=== PATIENT | male | born 1970 | race Caucasian/White ===

== ENCOUNTER 2017-02-19 04:35 | Emergency (ER) | payer OTHER ==
[~2017-02-19 04:35] MED LIST: ATENOLOL25 MG PO; IBUPROFEN600 MG PO; PERCOCET1 TA1 PO; VISTARIL25 MG PO
--- NOTE | 2017-02-19 10:40 | ED ORDER SUMMARY ---
..... Patient: MARTIN ARRINGTON OrderSheet [facility] VisitID: [id number] [place] [address] 47y, M Registration Date/Time: 02/19/2017 ORDER SHEET Weight: 77.1 kg (stated) Allergies: No Known Drug Allergy GENERAL ORDERS: CBC w Diff Urgent (05:03 02/19/2017 JQuivey R.N. verbal order read back to Milvia RANKIN) (Ack 5:15 CHagrafael ER Enrober Tender) (5:18 JQuivey R.N.) CMP Urgent (05:03 02/19/2017 JQuivey R.N. verbal order read back to Milvia RANKIN) (Ack 5:15 CHagrafael ER Enrober Tender) (5:18 JQuivey R.N.) UA-Culture if indicated Urgent (05:03 02/19/2017 JQuivey R.N. verbal order read back to Milvia RANKIN) (Ack 5:15 Carmelo ER Enrober Tender) (5:18 JQuivey R.N.) Amylase Urgent (05:03 02/19/2017 JQuivey R.N. verbal order read back to Milvia RANKIN) (Ack 5:15 Carmelo ER Enrober Tender) (5:18 JQuivey R.N.) Lipase Urgent (05:03 02/19/2017 JQuivey R.N. verbal order read back to Milvia RANKIN) (Ack 5:15 Carmelo ER Enrober Tender) (5:18 JQuivey R.N.) MEDICATION ORDERS: IV FLUIDS: IV Saline Lock (05:03 02/19/2017 JQuivey R.N. verbal order read back to Milvia RANKIN) (5:18 JQuivey R.N.) Zofran IV 4 mg (NOW) (06:58 02/19/2017 JQuivey R.N. verbal order read back to Milvia RANKIN) (Ack 6:59 JQuivey R.N.) (7:06 JQuivey R.N.) Dilaudid IV 0.5 mg (NOW) (06:59 02/19/2017 JQuivey R.N. verbal order read back to Milvia RANKIN) (Ack 6:59 Jonh R.NTrang) (7:06 Jonh Curry) ORDER SHEET NOTES: [Electronically signed by Adina Rashid R.N. (11:03 02/19/2017)] [Electronically signed by Maynor Prado MD (11:30 03/10/2017)] [Electronically locked/signed by Adina Rashid R.N. (11:03 02/19/2017)]
--- NOTE | 2017-02-19 10:40 | ED ORDER SUMMARY ---
..... Patient: MARTIN ARRINGTON OrderSheet [facility] VisitID: [id number] [place] [address] 47y, M Registration Date/Time: 02/19/2017 ORDER SHEET Weight: 77.1 kg (stated) Allergies: No Known Drug Allergy GENERAL ORDERS: CBC w Diff Urgent (05:03 02/19/2017 JQuivey R.N. verbal order read back to Milvia RANKIN) (Ack 5:15 CHagrafael ER Heat Treat Inspector) (5:18 JQuivey R.N.) CMP Urgent (05:03 02/19/2017 JQuivey R.N. verbal order read back to Milvia RANKIN) (Ack 5:15 CHagrafael ER Heat Treat Inspector) (5:18 JQuivey R.N.) UA-Culture if indicated Urgent (05:03 02/19/2017 JQuivey R.N. verbal order read back to Milvia RANKIN) (Ack 5:15 Carmelo ER Heat Treat Inspector) (5:18 JQuivey R.N.) Amylase Urgent (05:03 02/19/2017 JQuivey R.N. verbal order read back to Milvia RANKIN) (Ack 5:15 Carmelo ER Heat Treat Inspector) (5:18 JQuivey R.N.) Lipase Urgent (05:03 02/19/2017 JQuivey R.N. verbal order read back to Milvia RANKIN) (Ack 5:15 Carmelo ER Heat Treat Inspector) (5:18 JQuivey R.N.) MEDICATION ORDERS: IV FLUIDS: IV Saline Lock (05:03 02/19/2017 JQuivey R.N. verbal order read back to Milvia RANKIN) (5:18 JQuivey R.N.) Zofran IV 4 mg (NOW) (06:58 02/19/2017 JQuivey R.N. verbal order read back to Milvia RANKIN) (Ack 6:59 JQuivey R.N.) (7:06 JQuivey R.N.) Dilaudid IV 0.5 mg (NOW) (06:59 02/19/2017 JQuivey R.N. verbal order read back to Milvia RANKIN) (Ack 6:59 Jonh R.NTrang) (7:06 Jonh Curry) ORDER SHEET NOTES: [Electronically signed by Adina Rashid R.N. (11:03 02/19/2017)] [Electronically signed by Maynor Prado MD (11:30 03/10/2017)] [Electronically locked/signed by Adina Rashid R.N. (11:03 02/19/2017)]
--- NOTE | 2017-02-19 10:40 | ED NURSING NOTES ---
Clinical Report - Nurses [facility] [address] [place] [address] 02/19/2017 4:34 Patient: MARTIN ARRINGTON TRIAGE Triage time 04:44. Acuity: LEVEL 3. Chief Complaint: HEADACHE and (Blood clots from nose, neck pain). 04:53. Alert. SEPSIS SCREEN: Sepsis Screen. Negative (no infection suspected/documented). --04:53 Willy Lorenzo R.N. 04:44 02/19/17. BP: 124/87. HR: 81. RR: 15. O2 saturation: 97%. Temp: 98.4 F (oral). Pain level now: 05/06. --04:53 Willy Lorenzo R.N. Weight: 77.1 kg stated. Height/Length: 66 inches Per Patient. BMI: 27.4. --04:50 Willy Lorenzo R.N. Medications None. --04:47 Willy Lorenzo R.N. Medication/allergy information source: the patient and patient's family. --04:53 Willy Lorenzo R.N. Allergies No Known Drug Allergy. --04:47 Willy Lorenzo R.N. History Arrived by private vehicle. Historian: patient. Accompanied by spouse. Primary physician (Royer). This started last night. ( Patients reports pt gets nose bleeds, and since November he has been getting BLUNT's at the end of sex last night got a bad BLUNT and this AM had large blood clots from his nose and has a sore neck). 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 PAST MEDICAL HX: Immunizations: up-to-date. SOCIAL HX: Smoker- current status unknown (Chews). Never smoker. Alcohol use; consumes three beers a day. No drug use. No recent travel. No infectious disease exposure. ABUSE ASSESSMENT: No report of abuse. FALL RISK ASSESSMENT: Fall risk assessment completed. No fall risk identified. NUTRITIONAL RISK ASSESSMENT: The nutritional risk assessment revealed no deficiencies. FUNCTIONAL ASSESSMENT: Functional assessment: no impairments noted. LEARNING NEEDS ASSESSMENT: The learning needs assessment revealed no barriers. SKIN INTEGRITY ASSESSMENT: Skin integrity risk assessment completed. No skin integrity risk identified. --04:53 Willy Lorenzo R.N. PROBLEMS: Spinal menigitis. Deaf. --04:49 Willy Lorenzo R.N. ADDITIONAL SURGERIES: Abdominal surgery. Knee Surgery. Left wrist . Shoulder Surgery. --04:49 Willy Lorenzo R.N. Interventions ID band on patient. To treatment room. --04:53 Willy Lorenzo R.N. PHYSICAL ASSESSMENT 04:53. Ambulatory to room. GENERAL / NEURO / PSYCH: Alert. Oriented X 4. HEENT: No facial asymmetry noted. RESPIRATORY: Respirations not labored. SKIN: Skin is warm and dry. --04:53 Willy Lorenzo R.N. NURSING PROGRESS NOTES 04:54. Two patient identifiers checked. Call light placed in reach. Bed placed in lowest position. Brakes of bed on. Patient ready for evaluation- chart flagged. --04:54 Willy Lorenzo R.N. 05:13 02/19/2017 Site #1 started via IV in the right antecubital space with an 20g angiocath, with aseptic technique and good blood return; one attempt. Blood drawn: rainbow set. Labeled in the presence of the patient and sent to the lab. Saline lock flushed with 10 mL saline. --05:18 Willy Lorenzo R.N. 05:10. Patient ID band checked for patient name and birthdate: patient confirmed. Clean catch urine collected with return of yellow-colored carlos manuel-colored clear urine; sample sent to lab for urinalysis. Specimen labeled in the presence of the patient. --05:19 Willy Lorenzo R.N. 07:01 02/19/2017 Zofran (Ondansetron HCl) IVP 4 mg given over 2 minute(s) via site #1. Allergies verified and confirmed 5 rights. IV patency established. IV site checked: no pain, redness, or swelling. IV flushed thoroughly pre- and post-medication administration. --07:06 Willy Lorenzo R.N. 07:03 02/19/2017 Dilaudid (HYDROmorphone HCl PF) IVP 0.5 mg given over 2 minute(s) via site #1. Allergies verified, confirmed 5 rights and sedative warning given to the patient and patient's family. IV patency established. IV site checked: no pain, redness, or swelling. IV flushed thoroughly pre- and post-medication administration. --07:06 Willy Lorenzo R.N. The patient is calm and resting quietly. GENERAL / NEURO / PSYCH: Alert. Oriented X 4. RESPIRATORY: No respiratory distress. SKIN: Skin is warm and dry. Skin color within normal limits. --07:07 Willy Lorenzo R.N. 07:06 02/19/17. BP: 114/75. HR: 75. RR: 15. O2 saturation: 92%. --07:07 Willy Lorenzo R.N. Care transferred and report given (Troy Sparks EDRN). --07:21 Willy Lorenzo R.N. 09:00 02/19/17. ( Patient resting soundly states hasn't seen her sleep like this in a long time and that he is much better. states they have a f/u appointment this evening.). --10:48 Yamilet Ricketts R.N. 10:15 02/19/17. ( Report given to Adrianne MARQUEZ). --10:48 Yamilet Ricketts R.N. 10:15 02/19/17. Care transferred and report received. --10:15 Adina Rashid R.N. 10:15 02/19/17. BP: 108/75. HR: 74. RR: 16. O2 saturation: 93% on room air. Temp: deferred. Pain level now: 02/03. Additional comments: pt resting quietly, at bedside. Pt in no acute distress, dozes off and on . --10:19 Adina Rashid R.N. 09:30 02/19/17. BP: 115/77. HR: 86. RR: 20. O2 saturation: 94%. 09:00 02/19/17. BP: 102/75. HR: 86. RR: 18. O2 saturation: 93%. 08:30 02/19/17. BP: 113/75. HR: 86. RR: 18. O2 saturation: 94%. 08:00 02/19/17. BP: 113/79. HR: 87. RR: 18. O2 saturation: 93%. 07:30 02/19/17. BP: 114/79. HR: 86. RR: 18. O2 saturation: 93%. --10:46 Yamilet Ricketts R.N. 10:30 02/19/2017 Site #1 removed upon discharge. Bandaid applied. --11:02 Adina Rashid R.N. 10:30 02/19/2017 IV Saline Lock Drip IV Discontinued: upon discharge. Total amount infused: 0 mL. IV patency established. IV site checked: no pain, redness, or swelling. IV flushed thoroughly. --11:02 Adina Rashid R.N. DISPOSITION / DISCHARGE 10:40. Condition at departure: improved and stable. Learning barriers present. Teaching performed with the patient and family via family member interpreting. Learning barriers note: pt is deaf, but signed discharge instructions. Discharge instructions provided and reviewed with the patient. Reviewed medication(s) (vicodin). Patient verbalized understanding. Written instructions provided in Romansh. The patient was discharged home and accompanied by spouse. He left the Emergency Department ambulatory and via private vehicle. Spouse driving. --11:01 Adina Rashid R.N. 10:52 02/19/17. BP: 110/72. HR: 78. RR: 18. O2 saturation: 96%. Temp: deferred. Pain level now: 02/03. --11:01 Adina Rashid R.N. Locked/Released at 02/19/2017 11:03 by Adina Rashid R.N.
--- NOTE | 2017-02-19 10:40 | ED CLINICAL REPORT ---
Clinical Report - Physicians/Mid Levels [facility] [address] [place] [address] 02/19/2017 4:34 Patient: MARTIN ARRINGTON Time Seen: 04:55. Arrived- By private vehicle. Historian- patient and spouse. HISTORY OF PRESENT ILLNESS Chief Complaint: HEADACHE. This started last night and is now gone. It was abrupt in onset. Onset during intercourse. It is described as pressure, throbbing, sharp and diffuse. Has had neck pain. (his reports that he gets nose bleeds, and since November he has been getting BLUNT's at the end of sex. Last night got a bad BLUNT and this AM had large blood clots from his nose and has a sore neck). Similar symptoms previously: Several times. REVIEW OF SYSTEMS No chills, fever, sweats, calf pain or chest pain. No cough, difficulty breathing, pedal edema or palpitations. 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 He has had mild epistaxis (today - gone now). The bleeding seems to be coming from the right nare. All systems otherwise negative, except as recorded above. PAST HISTORY No history of head injury. Additional Surgeries: Abdominal surgery. Knee Surgery. Left wrist . Shoulder Surgery. Medications: None. Allergies: No Known Drug Allergy. SOCIAL HISTORY History of drug use He has a distant history of methamphetamine abuse. He lives with spouse. Has good social support. FAMILY HISTORY Denies family medical history. ADDITIONAL NOTES The nursing notes have been reviewed. PHYSICAL EXAM Vital Signs: 02/19/2017 04:44 BP: 124/87. HR: 81. RR: 15. O2 saturation: 97%. Temp: 98.4 F. Pain level now: 9/10. Have been reviewed. Appearance: Alert. No acute distress. Eyes: Pupils equal, round and reactive to light. Eyes normal inspection. ENT: Pharynx normal. Neck: Normal inspection. Neck supple. No meningeal signs or carotid bruit. CVS: Normal heart rate and rhythm. Heart sounds normal. Respiratory: No respiratory distress. Breath sounds normal. Abdomen: Soft and nontender. No organomegaly. Back: Normal inspection. No CVA tenderness. Skin: Skin warm and dry. Normal skin color. No rash. Normal skin turgor. Extremities: Extremities exhibit normal ROM. No calf tenderness. No lower extremity edema. Neuro: Alert. Mood/affect normal. No cerebellar findings. No motor deficit. PROGRESS AND PROCEDURES Course of Care: I had an extended discussion with the patient and his about the potential benefits and risks of CT imaging of the head. Given the fact that he has a cochlear implant that has been in place for years but is not in use and there are concerns about it, they would like to follow up at [facility]. Therefore, he has decided that he would like to wait until he goes there for any imaging studies. Patient/family counseled. Old medical records ordered. Disposition: Discharged. Condition: stable. CLINICAL IMPRESSION Episodic headache. INSTRUCTIONS No driving or operating machinery while taking medication. Sedative medication was given during your visit. Warnings: Further evaluation is necessary. GENERAL WARNINGS: Return or contact your physician immediately if your condition worsens or changes unexpectedly, if not improving as expected, or if other problems arise. Prescription Medications: Hydrocodone/APAP 5mg/325mg: take 1 to 2 orally every 6 hours as needed for pain. Dispense fifteen (15). No refills. Follow-up: Follow up with your doctor today as scheduled. Follow up with a neurologist- as recommended by your primary care physician- also follow-up with the department at [facility] where you're cochlear implant was placed as discussed. Understanding of the discharge instructions verbalized by patient and family. (Electronically signed by Maynor Prado MD 03/10/2017 11:30)
--- NOTE | 2017-03-10 11:30 | ED MED RECONCILIATION SUMMARY ---
Patient: MARTIN ARRINGTON Medication Reconciliation Report [facility] VisitID: [id number] [address] [place] [address] 47y, M Registration Date/Time: 02/19/2017 Weight: 77.1 kg Height/Length: 66 in. BMI: 27.4 ALLERGIES: No Known Drug Allergy The patient's Home Medications are listed below: NONE. The source(s) of the original Home Medication information: patient's family member patient The following Medications were given to the patient in the Emergency Department: Zofran [IVP] IVP 4 mg, administered: 02/19/2017 7:01:00 AM Dilaudid [IVP] IVP 0.5 mg, administered: 02/19/2017 7:03:00 AM The following Medications were prescribed to the patient: Hydrocodone/APAP 5mg/325mg: take 1 to 2 orally every 6 hours as needed for pain. Dispense fifteen (15). No refills. -- Maynor Prado MD
--- NOTE | 2017-03-10 11:30 | ED MAR SUMMARY ---
..... Medication Administration Record [facility] [address] [place] [address] Patient: MARTIN ARRINGTON Visit ID: [id number] 47y, M Weight: 77.1 kg Height/Length: 66 in BMI: 27.4 ALLERGIES: No Known Drug Allergy Given 07:01 02/19/2017 Willy Lorenzo RTrangN. Medication Administered: ZOFRAN [IVP] (ONDANSETRON HCL), Dose: 4 mg IVP over 2 minute(s), Site: #1 right AC. Medication Ordered: Zofran IV 4 mg (NOW). Given 07:03 02/19/2017 Willy Lorenzo RTrangN. Medication Administered: DILAUDID [IVP] (HYDROMORPHONE HCL PF), Dose: 0.5 mg IVP over 2 minute(s), Site: #1 right AC. Medication Ordered: Dilaudid IV 0.5 mg (NOW).
--- NOTE | 2017-03-10 11:30 | ED DISCHARGE INSTRUCTIONS ---
Patient: MARTIN ARRINGTON General Instructions [facility] VisitID: [id number] [place] [address] 47y, M Registration Date/Time: 02/19/2017 Episodic headache. INSTRUCTIONS No driving or operating machinery while taking medication. Sedative medication was given during your visit. Warnings: Further evaluation is necessary. GENERAL WARNINGS: Return or contact your physician immediately if your condition worsens or changes unexpectedly, if not improving as expected, or if other problems arise. Prescription Medications: Hydrocodone/APAP 5mg/325mg: take 1 to 2 orally every 6 hours as needed for pain. Dispense fifteen (15). No refills. Follow-up: Follow up with your doctor today as scheduled. Follow up with a neurologist- as recommended by your primary care physician- also follow-up with the department at [facility] where you're cochlear implant was placed as discussed. Understanding of the discharge instructions verbalized by patient and family. ADDITIONAL INFORMATION Headache [Unspecified] The cause of your headache today is not clear, but it does not appear to be the sign of any serious illness. Under stress, some people tense the muscles of their shoulder, neck and scalp without knowing it. If this condition lasts long enough, a TENSION HEADACHE can occur. A MIGRAINE HEADACHE is caused by changes in blood flow to the brain. A migraine attack may be triggered by emotional stress, hormone changes during the menstrual cycle, oral contraceptives, alcohol use, certain foods containing tyramine, eye strain, weather changes, missing meals, lack of sleep or oversleeping. Other causes of headache include a viral illness with high fever, head injury with concussion, sinus, ear or throat infection, dental pain and TMJ (jaw joint) pain. More serious but less common causes of headache include stroke, brain hemorrhage, brain tumor, meningitis and encephalitis. Home Care: If you were given pain medicine for this headache, do not drive yourself home. Arrange for a ride, instead. When you get home, try to sleep. You should feel much better when you wake up. Apply heat to the back of your neck to relieve neck muscle spasm. Migraine headaches may respond best to an ice pack on the forehead or at the base of the skull. If you are having nausea or vomiting, follow a light diet until your headache is relieved. If you have a migraine type headache, use sunglasses when in the daylight or around bright indoor lighting until symptoms improve. Bright glaring light can worsen this kind of headache. Follow Up with your doctor if the headache is not better within the next 24 hours. If you have frequent headaches you should discuss a treatment plan with your primary care doctor. By being aware of the earliest signs of headache, and starting treatment right away, you may be able to stop the pain yourself. Get Prompt Medical Attention if any of the following occur: Worsening of your head pain or no improvement within 24 hours Repeated vomiting (unable to keep liquids down) Fever of 100.4F (38C) or higher, or as directed by your healthcare provider Stiff neck Extreme drowsiness, confusion or fainting Dizziness, vertigo (dizziness with spinning sensation) Weakness of an arm or leg or one side of the face Difficulty with speech or vision Hydrocodone Bitartrate, Acetaminophen Oral tablet What is this medicine? ACETAMINOPHEN; HYDROCODONE (a set a BRYAN john fen; ganesh droe KOE done) is a pain reliever. It is used to treat mild to moderate pain. How should I use this medicine? Take this medicine by mouth. Swallow it with a full glass of water. Follow the directions on the prescription label. If the medicine upsets your stomach, take the medicine with food or milk. Do not take more than you are told to take. Talk to your cable rigger regarding the use of this medicine in children. This medicine is not approved for use in children. What side effects may I notice from receiving this medicine? Side effects that you should report to your doctor or health medicare compliance auditor as soon as possible: allergic reactions like skin rash, itching or hives, swelling of the face, lips, or tongue breathing problems confusion feeling faint or lightheaded, falls stomach pain yellowing of the eyes or skin Side effects that usually do not require medical attention (report to your doctor or health medicare compliance auditor if they continue or are bothersome): nausea, vomiting stomach upset What may interact with this medicine? alcohol antihistamines isoniazid medicines for depression, anxiety, or psychotic disturbances medicines for sleep muscle relaxants naltrexone narcotic medicines (opiates) for pain phenobarbital ritonavir tramadol What if I miss a dose? If you miss a dose, take it as soon as you can. If it is almost time for your next dose, take only that dose. Do not take double or extra doses. Where should I keep my medicine? Keep out of the reach of children. This medicine can be abused. Keep your medicine in a safe place to protect it from theft. Do not share this medicine with anyone. Selling or giving away this medicine is dangerous and against the law. Store at room temperature between 15 and 30 degrees C (59 and 86 degrees F). Protect from light. Keep container tightly closed. Throw away any unused medicine after the expiration date. Discard unused medicine and used packaging carefully. Pets and children can be harmed if they find used or lost packages. What should I tell my health care provider before I take this medicine? They need to know if you have any of these conditions: brain tumor Crohn's disease, inflammatory bowel disease, or ulcerative colitis drink more than 3 alcohol-containing drinks per day drug abuse or addiction head injury heart or circulation problems kidney disease or problems going to the bathroom liver disease lung disease, asthma, or breathing problems an unusual or allergic reaction to acetaminophen, hydrocodone, other opioid analgesics, other medicines, foods, dyes, or preservatives or trying to get breast-feeding What should I watch for while using this medicine? Tell your doctor or health medicare compliance auditor if your pain does not go away, if it gets worse, or if you have new or a different type of pain. You may develop tolerance to the medicine. Tolerance means that you will need a higher dose of the medicine for pain relief. Tolerance is normal and is expected if you take the medicine for a long time. Do not suddenly stop taking your medicine because you may develop a severe reaction. Your body becomes used to the medicine. This does NOT mean you are addicted. Addiction is a behavior related to getting and using a drug for a non-medical reason. If you have pain, you have a medical reason to take pain medicine. Your doctor will tell you how much medicine to take. If your doctor wants you to stop the medicine, the dose will be slowly lowered over time to avoid any side effects. You may get drowsy or dizzy when you first start taking the medicine or change doses. Do not drive, use machinery, or do anything that may be dangerous until you know how the medicine affects you. Stand or sit up slowly. There are different types of narcotic medicines (opiates) for pain. If you take more than one type at the same time, you may have more side effects. Give your health care provider a list of all medicines you use. Your doctor will tell you how much medicine to take. Do not take more medicine than directed. Call emergency for help if you have problems breathing. The medicine will cause constipation. Try to have a bowel movement at least every 2 to 3 days. If you do not have a bowel movement for 3 days, call your doctor or health medicare compliance auditor. Too much acetaminophen can be very dangerous. Do not take Tylenol (acetaminophen) or medicines that contain acetaminophen with this medicine. Many non-prescription medicines contain acetaminophen. Always read the labels carefully. You have been given the following additional information: Headache, Unspecified Hydrocodone Bitartrate, Acetaminophen Oral tablet No driving or operating machinery while taking medication. Sedative medication was given during your visit. (Electronically signed by Maynor Prado MD 03/10/2017 11:30)
--- NOTE | 2017-03-10 11:30 | ED MAR SUMMARY ---
..... Medication Administration Record [facility] [address] [place] [address] Patient: MARTIN ARRINGTON Visit ID: [id number] 47y, M Weight: 77.1 kg Height/Length: 66 in BMI: 27.4 ALLERGIES: No Known Drug Allergy Given 07:01 02/19/2017 Willy Lorenzo RTrangN. Medication Administered: ZOFRAN [IVP] (ONDANSETRON HCL), Dose: 4 mg IVP over 2 minute(s), Site: #1 right AC. Medication Ordered: Zofran IV 4 mg (NOW). Given 07:03 02/19/2017 Willy Lorenzo RTrangN. Medication Administered: DILAUDID [IVP] (HYDROMORPHONE HCL PF), Dose: 0.5 mg IVP over 2 minute(s), Site: #1 right AC. Medication Ordered: Dilaudid IV 0.5 mg (NOW).
--- NOTE | 2017-03-10 11:30 | ED MED RECONCILIATION SUMMARY ---
Patient: MARTIN ARRINGTON Medication Reconciliation Report [facility] VisitID: [id number] [address] [place] [address] 47y, M Registration Date/Time: 02/19/2017 Weight: 77.1 kg Height/Length: 66 in. BMI: 27.4 ALLERGIES: No Known Drug Allergy The patient's Home Medications are listed below: NONE. The source(s) of the original Home Medication information: patient's family member patient The following Medications were given to the patient in the Emergency Department: Zofran [IVP] IVP 4 mg, administered: 02/19/2017 7:01:00 AM Dilaudid [IVP] IVP 0.5 mg, administered: 02/19/2017 7:03:00 AM The following Medications were prescribed to the patient: Hydrocodone/APAP 5mg/325mg: take 1 to 2 orally every 6 hours as needed for pain. Dispense fifteen (15). No refills. -- Maynor Prado MD
--- NOTE | 2017-03-10 11:30 | ED DISCHARGE INSTRUCTIONS ---
Patient: MARTIN ARRINGTON General Instructions [facility] VisitID: [id number] [place] [address] 47y, M Registration Date/Time: 02/19/2017 Episodic headache. INSTRUCTIONS No driving or operating machinery while taking medication. Sedative medication was given during your visit. Warnings: Further evaluation is necessary. GENERAL WARNINGS: Return or contact your physician immediately if your condition worsens or changes unexpectedly, if not improving as expected, or if other problems arise. Prescription Medications: Hydrocodone/APAP 5mg/325mg: take 1 to 2 orally every 6 hours as needed for pain. Dispense fifteen (15). No refills. Follow-up: Follow up with your doctor today as scheduled. Follow up with a neurologist- as recommended by your primary care physician- also follow-up with the department at [facility] where you're cochlear implant was placed as discussed. Understanding of the discharge instructions verbalized by patient and family. ADDITIONAL INFORMATION Headache [Unspecified] The cause of your headache today is not clear, but it does not appear to be the sign of any serious illness. Under stress, some people tense the muscles of their shoulder, neck and scalp without knowing it. If this condition lasts long enough, a TENSION HEADACHE can occur. A MIGRAINE HEADACHE is caused by changes in blood flow to the brain. A migraine attack may be triggered by emotional stress, hormone changes during the menstrual cycle, oral contraceptives, alcohol use, certain foods containing tyramine, eye strain, weather changes, missing meals, lack of sleep or oversleeping. Other causes of headache include a viral illness with high fever, head injury with concussion, sinus, ear or throat infection, dental pain and TMJ (jaw joint) pain. More serious but less common causes of headache include stroke, brain hemorrhage, brain tumor, meningitis and encephalitis. Home Care: If you were given pain medicine for this headache, do not drive yourself home. Arrange for a ride, instead. When you get home, try to sleep. You should feel much better when you wake up. Apply heat to the back of your neck to relieve neck muscle spasm. Migraine headaches may respond best to an ice pack on the forehead or at the base of the skull. If you are having nausea or vomiting, follow a light diet until your headache is relieved. If you have a migraine type headache, use sunglasses when in the daylight or around bright indoor lighting until symptoms improve. Bright glaring light can worsen this kind of headache. Follow Up with your doctor if the headache is not better within the next 24 hours. If you have frequent headaches you should discuss a treatment plan with your primary care doctor. By being aware of the earliest signs of headache, and starting treatment right away, you may be able to stop the pain yourself. Get Prompt Medical Attention if any of the following occur: Worsening of your head pain or no improvement within 24 hours Repeated vomiting (unable to keep liquids down) Fever of 100.4F (38C) or higher, or as directed by your healthcare provider Stiff neck Extreme drowsiness, confusion or fainting Dizziness, vertigo (dizziness with spinning sensation) Weakness of an arm or leg or one side of the face Difficulty with speech or vision Hydrocodone Bitartrate, Acetaminophen Oral tablet What is this medicine? ACETAMINOPHEN; HYDROCODONE (a set a BRYAN john fen; ganesh droe KOE done) is a pain reliever. It is used to treat mild to moderate pain. How should I use this medicine? Take this medicine by mouth. Swallow it with a full glass of water. Follow the directions on the prescription label. If the medicine upsets your stomach, take the medicine with food or milk. Do not take more than you are told to take. Talk to your tour narrator regarding the use of this medicine in children. This medicine is not approved for use in children. What side effects may I notice from receiving this medicine? Side effects that you should report to your doctor or health patient care technician as soon as possible: allergic reactions like skin rash, itching or hives, swelling of the face, lips, or tongue breathing problems confusion feeling faint or lightheaded, falls stomach pain yellowing of the eyes or skin Side effects that usually do not require medical attention (report to your doctor or health patient care technician if they continue or are bothersome): nausea, vomiting stomach upset What may interact with this medicine? alcohol antihistamines isoniazid medicines for depression, anxiety, or psychotic disturbances medicines for sleep muscle relaxants naltrexone narcotic medicines (opiates) for pain phenobarbital ritonavir tramadol What if I miss a dose? If you miss a dose, take it as soon as you can. If it is almost time for your next dose, take only that dose. Do not take double or extra doses. Where should I keep my medicine? Keep out of the reach of children. This medicine can be abused. Keep your medicine in a safe place to protect it from theft. Do not share this medicine with anyone. Selling or giving away this medicine is dangerous and against the law. Store at room temperature between 15 and 30 degrees C (59 and 86 degrees F). Protect from light. Keep container tightly closed. Throw away any unused medicine after the expiration date. Discard unused medicine and used packaging carefully. Pets and children can be harmed if they find used or lost packages. What should I tell my health care provider before I take this medicine? They need to know if you have any of these conditions: brain tumor Crohn's disease, inflammatory bowel disease, or ulcerative colitis drink more than 3 alcohol-containing drinks per day drug abuse or addiction head injury heart or circulation problems kidney disease or problems going to the bathroom liver disease lung disease, asthma, or breathing problems an unusual or allergic reaction to acetaminophen, hydrocodone, other opioid analgesics, other medicines, foods, dyes, or preservatives or trying to get breast-feeding What should I watch for while using this medicine? Tell your doctor or health patient care technician if your pain does not go away, if it gets worse, or if you have new or a different type of pain. You may develop tolerance to the medicine. Tolerance means that you will need a higher dose of the medicine for pain relief. Tolerance is normal and is expected if you take the medicine for a long time. Do not suddenly stop taking your medicine because you may develop a severe reaction. Your body becomes used to the medicine. This does NOT mean you are addicted. Addiction is a behavior related to getting and using a drug for a non-medical reason. If you have pain, you have a medical reason to take pain medicine. Your doctor will tell you how much medicine to take. If your doctor wants you to stop the medicine, the dose will be slowly lowered over time to avoid any side effects. You may get drowsy or dizzy when you first start taking the medicine or change doses. Do not drive, use machinery, or do anything that may be dangerous until you know how the medicine affects you. Stand or sit up slowly. There are different types of narcotic medicines (opiates) for pain. If you take more than one type at the same time, you may have more side effects. Give your health care provider a list of all medicines you use. Your doctor will tell you how much medicine to take. Do not take more medicine than directed. Call emergency for help if you have problems breathing. The medicine will cause constipation. Try to have a bowel movement at least every 2 to 3 days. If you do not have a bowel movement for 3 days, call your doctor or health patient care technician. Too much acetaminophen can be very dangerous. Do not take Tylenol (acetaminophen) or medicines that contain acetaminophen with this medicine. Many non-prescription medicines contain acetaminophen. Always read the labels carefully. You have been given the following additional information: Headache, Unspecified Hydrocodone Bitartrate, Acetaminophen Oral tablet No driving or operating machinery while taking medication. Sedative medication was given during your visit. (Electronically signed by Maynor Prado MD 03/10/2017 11:30)
== END 2017-02-19 10:40 | disposition home or self-care (01) ==
LOC: ED SRH 04:35
DX: R51 Headache (principal); R04.0 Epistaxis; M54.2 Cervicalgia; F17.228 Nicotine dependence, chewing tobacco, with other nicotine-induced disorders; Z96.21 Cochlear implant status
CPT/HCPCS: 90004; 90100; 92235; 92530; 95059